=== PATIENT | female | born 1960 | race Two or more races ===

== ENCOUNTER 2022-08-06 03:25 | Emergency (ER) | payer OTHER ==
[2022-08-06] MEDS ORDERED: PHENYLEPHRINE HCL 0.25% 15 ML NASAL SPRAY NASAL ONE (04:15)
[2022-08-06] MEDS ORDERED: SILVER NITRATE APPLICATOR 1 EA STICK TP ONE (04:15)
[2022-08-06 04:30] VITALS: BP 119/56
== END 2022-08-06 07:06 | disposition home or self-care (01) ==
LOC: EMS 03:26
DX: R04.0 Epistaxis (principal); I10 Essential (primary) hypertension; K76.0 Fatty (change of) liver, not elsewhere classified; F17.210 Nicotine dependence, cigarettes, uncomplicated; F10.90 Alcohol use, unspecified, uncomplicated
CPT/HCPCS: 30901; 99284; Z7502; Z7610